=== PATIENT | male | born 1985 | race Caucasian/White ===

== ENCOUNTER 2017-07-25 17:18 | Emergency (ER) | payer OTHER ==
[~2017-07-25] VITALS: Ht 182.9 cm; Wt 100.4 kg
[2017-07-25 17:26] VITALS: BP 157/87; PULSE 82; TEMP 37; O2SAT 99; Ht 182.9 cm; Wt 100.4 kg
[2017-07-25] MEDS ORDERED: MoRPHine SULFATE 4 MG/ML 1 ML CARP\\VIAL IV STA (17:39)
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
--- NOTE | 2017-07-25 18:39 | DIAGNOSTIC IMAGING REPORT ---
R CLAVICLE, R SHOULDER MIN 2 VIEWS ROUTINE CLINICAL HISTORY: fall onto shoulder, eval dislocation, ac separation, fracture COMPARISON STUDY: None. FINDINGS: No fractures identified within the right shoulder or right clavicle. No dislocation within the right shoulder. There is 5 mm superior displacement the distal clavicle relation to the acromium. This is consistent with a grade II acromioclavicular separation. IMPRESSION: 1. Grade II acromioclavicular separation. 2. No fractures identified within the right shoulder or right clavicle. Electronically signed by: Armani Santana M.D. 07/25/2017 6:37 PM Dictated Date/Time: 07/25/2017 6:35 PM
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
[2017-07-25] MEDS ORDERED: HYDR-5688 PO (19:47)
[2017-07-25] MEDS ORDERED: NORCO 5/325MG HOME PACK PO ONE (20:00)
== END 2017-07-25 20:02 | disposition home or self-care (01) ==
LOC: C.EDB 17:18 → C.EDD 20:02
DX: S43.101A Unspecified dislocation of right acromioclavicular joint, initial encounter (principal); V19.9XXA Pedal cyclist (driver) (passenger) injured in unspecified traffic accident, initial encounter